=== PATIENT | male | born 1945 | race Caucasian/White ===

== ENCOUNTER → 2020-07-13 10:37 | Outpatient (BNVA) | payer MEDICARE, SELFPAY | PROVIDERS: PCP Internal Medicine; Visit Provider Hospitalist | DX: R91.1 Solitary pulmonary nodule (principal); J47.9 Bronchiectasis, uncomplicated; R05 Cough; R06.00 Dyspnea, unspecified | CPT/HCPCS: 99202 ==

== ENCOUNTER 2020-07-19 09:59 | Outpatient (REF) | payer MEDICARE, SELFPAY ==
--- NOTE | ~2020-07-19 | CT_ITS ---
EXAMINATION: CT CHEST WITHOUT CONTRAST CLINICAL INFORMATION: Pulmonary nodules COMPARISON: None TECHNIQUE: Multidetector volumetric CT imaging of the chest was done. Axial MIP volume rendering provided. Sagittal and coronal reformatted images were obtained. This CT examination was performed using dose optimization techniques as appropriate, variously including the following: *Automated exposure control *Adjustment of mA and/or kV according to patient size (this includes techniques or standardized protocols for targeted exams where dose is matched to indication/reason for exam; i.e. extremities or head) *Use of iterative reconstruction technique DLP: 271 mGy-cm FINDINGS: LUNGS: There is a small 2 mm peripheral calcified left upper lobe nodule axial image 53 series 5. There is a 2 mm left upper lobe nodule axial image 138 series 5. There is a 2 mm calcified superior segment right lower lobe nodule adjacent to the fissure axial image 196 series 5. There is a small 2 mm calcified left lower lobe nodule axial image 2:15 series 5. There is a 4 mm calcified lingular nodule axial image 253 series 5. There is a 4 mm calcified left lower lobe nodule axial image 253 series 5. There is a 4 mm calcified right lower lobe nodule axial image 272 series 5. There is a 3 mm calcified right lower lobe nodule axial image 311 series 5. There is a 2 mm calcified left lower lobe nodule axial image 300 series 5. There is a 3 mm peripheral or subpleural calcified left lower lobe nodule axial image 371 series 5. Is mild bronchiectasis in the right lower. There are increased peripheral interstitial markings seen at the lung bases questionable for mild or early interstitial disease. MEDIASTINUM: The left lobe of the thyroid gland has been removed. There are no enlarged hilar or mediastinal lymph nodes. There is a prosthetic aortic valve. There is a left subclavian dual chamber pacemaker. There is coronary artery calcification. There is no pericardial effusion. The thoracic aorta is normal tortuous but normal in caliber. PLEURA: There is no pleural effusion. No pleural mass or thickening. AXILLA: No lymphadenopathy. UPPER ABDOMEN: There are 2 low-attenuation liver lesions measuring 2.2 cm in the lateral segment of the left lobe and 5 mm in the central liver near the junction of the medial segment of the left lobe and anterior segment of the right lobe axial image 53 series 3. Larger lesion has low Hounsfield units suggestive of a cyst. Smaller lesion is difficult to characterize but also probably represents a cyst. The gallbladder has been removed. There is diverticulosis of the colon. OSSEOUS STRUCTURES: There are degenerative changes of the spine. Is a median sternotomy. CT/CT chest wo con IMPRESSION: Small calcified pulmonary nodules probably representing calcified granulomas.
== END 2020-07-19 10:00 | disposition home or self-care (01) ==
LOC: HO.CT 09:59
PROVIDERS: PCP Internal Medicine; Visit Provider Hospitalist
DX: R91.1 Solitary pulmonary nodule (principal); J47.9 Bronchiectasis, uncomplicated
CPT/HCPCS: 71250

== ENCOUNTER 2020-07-27 10:40 | Outpatient (REF) | payer MEDICARE, SELFPAY ==
--- NOTE | 2020-07-27 12:14 | PFT_ITS ---
FLOWS: FEV1 90% of predicted at 2.57 L. FVC 80% of predicted at 3.18 L. FEV1 to FVC ratio of 0.81. No bronchodilator response. LUNG VOLUMES: Total lung capacity 86% of predicted at 5.91 L. Residual volume 94% of predicted at 2.40 L. Slow vital capacity 81% of predicted at 3.51 L. Expiratory reserve volume 108% of predicted at 1.23 L. Diffusion capacity is moderately reduced, diffusion capacity just being mildly used after correction for alveolar ventilation. IMPRESSION: No obstructive or restrictive ventilatory defect. No bronchodilator response. Isolated defect in diffusion capacity suggests underlying pulmonary, parenchymal, or vascular disease. Clinical correlation is advised. Fer Lieberman MD AP/MODL / [id number]
== END 2020-07-27 10:41 | disposition home or self-care (01) ==
LOC: HO.RESP 10:40
PROVIDERS: Visit Provider Hospitalist
DX: J47.9 Bronchiectasis, uncomplicated (principal); R91.1 Solitary pulmonary nodule
CPT/HCPCS: 94060; 94727; 94729

== ENCOUNTER → 2020-08-17 08:23 | Outpatient (BNVA) | payer MEDICARE, SELFPAY | PROVIDERS: PCP Internal Medicine; Visit Provider Hospitalist | DX: R06.00 Dyspnea, unspecified (principal); J47.9 Bronchiectasis, uncomplicated; R91.1 Solitary pulmonary nodule; R05 Cough; R40.0 Somnolence; G47.33 Obstructive sleep apnea (adult) (pediatric); Z99.89 Dependence on other enabling machines and devices; Z79.899 Other long term (current) drug therapy | CPT/HCPCS: 99212 ==

== ENCOUNTER → 2021-02-22 08:06 | Outpatient (BNVA) | payer MEDICARE, SELFPAY | PROVIDERS: PCP Internal Medicine; Visit Provider Hospitalist | DX: J47.9 Bronchiectasis, uncomplicated (principal); R06.00 Dyspnea, unspecified; R91.1 Solitary pulmonary nodule; R05.9 Cough, unspecified; G47.33 Obstructive sleep apnea (adult) (pediatric); R40.0 Somnolence; B02.29 Other postherpetic nervous system involvement; Z99.89 Dependence on other enabling machines and devices | CPT/HCPCS: 99212 ==

== ENCOUNTER 2024-09-08 13:27 | Outpatient (AMB) | payer MEDICARE, SELFPAY ==
[2024-09-08 13:29] VITALS: BP 118/56; PULSE 68; O2SAT 97; BMI 28.3
--- NOTE | 2024-09-08 13:29 | A.OFFVIS_ITS ---
Vital Signs 09/08/24 13:29 Height 5 ft 9 in Weight 191 lb 12.835 oz BMI 28.3 BP 118/56 L Blood Pressure Location Lt brachial Position Sitting Pulse 68 Pulse Source Pulse Oximeter Pulse Oximetry (%) 97 Oxygen Delivery Method Room Air Intake Visit Reasons: Interstitial lung disease Paperback Machine Operator Required: No Accompanied by: Self / Same As Patient Allergies No Known Allergies Allergy (Verified 09/08/24 13:33) HPI Comments Details: The patient is a 79-year-old gentleman with a known history of for heart disease and status post pacemaker placement was been complaining of progressive dyspnea on exertion. [id number] severity. Primarily when going up a flight of st airs or going uphill he can become significantly short of breath. In addition to that he has noticed a cough which is typically hacky cough. Moderate severity sometimes productive. He did follow-up with cardiology and felt that he was doing well without any significant findings or explanations for her symptoms. He did undergo a chest x-ray at the time which brought up the question of a Missplaced lead from his pace maker. 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 Therefore the patient was referred to Pulmonary. On further questioning she has never used any inhalers. He has not had any significant wheezing or chest tightness. Denies any new exposures or significant allergies. He has never had pulmonary function studies. He did undergo a CT scan of the abdomen back in February 04 the 2019. For this is done at [facility]. It appears that he had a small subcentimeter pulmonary nodule in the right lower lobe. Also, patient was found to have some bibasilar bronchiectasis. In addition to that he did have a dilated distal esophagus with what appeared to be some foods or gastric fluid. Therefore, we did talk about the possibility of microaspiration which could potentially be asymptomatic and could result and a chronic cough along with the changes that we see on his CT scan of the abdomen lung windows. On examination he also happened to have bibasilar crackles right more than left. Therefore, based on these findings additional imaging studies will be warranted. We did talk about a barium swallow but he already had 1 done at [facility] when he was evaluated by GI at some point. I do not have those results. 08/17/2020 The patient is here for a pulmonary follow up visit. Since we last spoke he ended up with shiggles and completed a course of antiviral therapy. He has it all covered up.Dose he has had increasing fatigue and decreased energy. He has also had decreased appetite. Because of the pain discomfort he has not been using his CPAP regularly. He still complaining of daytime drowsiness. We did review his CT scan of the chest demonstrating some areas of reticular changes primarily in the periphery consistent with some minimal pulmonary scarring. Also some minimal degree of bronchiectasis. Does have a calcified pulmonary nodule. his pulmonary function studies without any obstructive nor restrictive ventilatory defects. Although, he has an isolated moderate diffusion impairment. Some degree this could be secondary to his body habitus and also due to his minimal scarring of the lungs. In the meantime he is biggest concern is the daytime drowsiness. He needs to start using the CPAP more regularly. He is aware. He is also uses zolpidem for sleep. If he continues having significant daytime drowsiness even after using effective CPAP therapy and no other etiologies for his daytime drowsiness 1 can consider medications such as nuvigil. Although I hesitate to start any medications on the patient right now with his comorbidities. Therefore, will follow up in 6 months and is going to bring his CPAP so we can download it and adjust the machine if needed. No need for respiratory therapy at this time. 02/22/2021 the patient is here for a pulmonary follow-up visit. Overall the patient has been doing well from a respiratory status. Denies any significant shortness of breath or cough. Has not had to use any kind of respiratory therapy. He has been healing from the shingles but although now has post herpetic neuralgia. He does have Lidoderm patches at home available in a did suggest that he can try then to a least ease the discomfort. The patient also was admitted to the hospital with significant kidney stones requiring lithotripsy and also cystoscopy with extraction and stent placement. He is healing from that as well. The patient also had his teeth extracted and now is getting used to his dentures. He has been trying to uses CPAP. The CPAP has been affecting beneficial. He did bring machine. He was set in the wrong mask settings and switch to 2 pillow. He prefers the pillows. I switched to CPAP 12 to APAP 8-14. He will call if he has any issues and we can try to request access in order to further adjusted machine if needs to. He has had significant weight loss therefore he may benefit from a lower pressure. His last CT scan of the chest was back in July 2020 demonstrating calcified pulmonary nodules. The fact that there are calcified suggest there more consistent with granulomas and therefore less concerned for malignancies. 09/08/2024 the patient is here for pulmonary follow-up visit. Overall he is doing well. He did have his valve fixed since we last spoke with a TEVAR. He also had a stent placed to the LAD. He is doing very well from a cardiac standpoint. He did have some increased dyspnea symptoms. He did undergo pulmonary function studies at [facility] which I did review. He appeared to have an isolated mild diffusion impairment. But lungs were expanding just fine and is spirometry was also reassuring. The patient ultimately had a CT scan of the chest at [facility] which I personally reviewed. He did have some interstitial changes of the bases. He also had pulmonary nodules. Subcentimeter in nature. He did have a CT scan here at [place] back in 2020 and I did compare them and did look fairly similar possibly just a slight increase. Will go ahead and plan to repeat a CAT scan in a year's time in the meantime. He has been using the CPAP. Sometimes he struggles with CPAP because feels like he just takes it off in the middle the night because he can not tolerate any longer. Does not realize he does that. It seems like his AHI is around 5. His average pressure is around 9 cm and he has maximum pressure is about 11 cm. Therefore I will decrease the maximum pressure from 14-10 to see if we can keep him around the therapeutic range in keep him from taking get off from the higher pressures. If he has any difficulties tolerating the change her pressure he can always call me. Will follow-up in 6 months at which point will talk about went to repeat imaging studies. [facility] Medical History (Updated 09/08/24 @ 20:09 by Ozzie Nava MD) ILD (interstitial lung disease) Pulmonary nodules Post herpetic neuralgia Has daytime drowsiness NICOLASA on CPAP Dyspnea Cough Pulmonary nodule Bronchiectasis Social History Patient Tobacco Use Status: Never used Tobacco Review of Systems Const Reports daytime sleepiness, Reports difficulty sleeping, Reports fatigue and Denies night sweats ENT Denies change in voice, Denies lip swelling, Denies mouth pain, Reports nasal congestion, Reports nasal discharge and Denies tongue swelling Card Denies chest pain and Reports dyspnea on exertion Resp Reports cough and Reports dyspnea on exertion GI Denies abdominal pain Musc Denies no additional complaints Neuro Denies Neuro-related abnormal movements Psych Denies no additional complaints Endo Reports fatigue Robert/Lymph Denies easy bleeding and Denies lymphadenopathy Aller/Immun Denies lip swelling and Denies tongue swelling Physical Exam Vital Signs: Last Vital Signs Pulse 68 09/08/24 13:29 BP 118/56 L 09/08/24 13:29 Pulse Ox 97 09/08/24 13:29 Oxygen Delivery Method Room Air 09/08/24 13:29 BMI result Body Mass Index 28.3 Const General: alert Neck Neck: Yes normal visual inspection, Yes full ROM and Yes no lymphadenopathy Chest Chest palpation & inspection: normal inspection of the chest Resp Auscultation: no crackles, rales and diminished lung sounds Cardio Rate: regular rate Rhythm: regular rhythm Heart sounds: S1 normal heart sound present, S2 normal heart sound present and Murmur heart sound present GI Palpation (GI): Soft to palpation and nontender Auscultation: normal bowel sounds Skin General skin exam: rashes and/or lesions noted Assessment & Plan Assessment & Plan (1) Dyspnea: Code(s): R06.00 - Dyspnea, unspecified Category: Medical Qualifiers: Dyspnea type: dyspnea on exertion Qualified Code(s): R06.00 - Dyspnea, unspecified (2) Bronchiectasis: Code(s): J47.9 - Bronchiectasis, uncomplicated Category: Medical Qualifiers: Bronchiectasis type: uncomplicated Qualified Code(s): J47.9 - Bronchiectasis, uncomplicated (3) Cough: Code(s): R05 - Cough Category: Medical Qualifiers: Cough type: chronic Qualified Code(s): R05.3 - Chronic cough (4) NICOLASA on CPAP: Code(s): G47.33 - Obstructive sleep apnea (adult) (pediatric); Z99.89 - Dependence on other enabling machines and devices Category: Medical (5) Has daytime drowsiness: Code(s): R40.0 - Somnolence Category: Social Hx (6) Pulmonary nodules: Code(s): R91.8 - Other nonspecific abnormal finding of lung field Category: Medical (7) ILD (interstitial lung disease): Comment: mild Code(s): J84.9 - Interstitial pulmonary disease, unspecified Category: Medical Plan Continue APAP therapy 8-14 with pillows Benzonates as needed for cough Repeat CT chest 06/2025 F/U 6 months Orders: Orders CT chest wo IV con 10 Months J84.9 - Interstitial pulmonary disease, unspecified, R91.8 - Other nonspecific abnormal finding of lung field Coding Level of Care Code New Pt Level 4 (51167) Diagnoses Dyspnea on exertion R06.00 Dyspnea type: dyspnea on exertion Bronchiectasis without complication J47.9 Bronchiectasis type: uncomplicated Chronic cough R05.3 Cough type: chronic NICOLASA on CPAP G47.33; Z99.89 Has daytime drowsiness R40.0 Pulmonary nodules R91.8 ILD (interstitial lung disease) J84.9 Time Spent (min) 30
== END 2024-09-08 13:59 | disposition home or self-care (01) ==
LOC: HO.HPS 13:28
PROVIDERS: PCP Internal Medicine; Referring Provider Internal Medicine; Visit Provider Hospitalist
DX: R06.00 Dyspnea, unspecified (principal); J47.9 Bronchiectasis, uncomplicated; R05.3 Chronic cough; G47.33 Obstructive sleep apnea (adult) (pediatric); Z99.89 Dependence on other enabling machines and devices; R40.0 Somnolence; R91.8 Other nonspecific abnormal finding of lung field; J84.9 Interstitial pulmonary disease, unspecified
CPT/HCPCS: 99204

== ENCOUNTER → 2024-09-08 13:27 | Outpatient (BNVA) | payer MEDICARE, SELFPAY | PROVIDERS: PCP Internal Medicine; Referring Provider Internal Medicine; Visit Provider Hospitalist | DX: J47.9 Bronchiectasis, uncomplicated (principal); J84.9 Interstitial pulmonary disease, unspecified; R06.00 Dyspnea, unspecified; R05.3 Chronic cough; R40.0 Somnolence; R91.8 Other nonspecific abnormal finding of lung field; G47.33 Obstructive sleep apnea (adult) (pediatric); Z99.89 Dependence on other enabling machines and devices | CPT/HCPCS: 99202 ==